=== PATIENT | male | born 1995 | race Caucasian/White ===

== ENCOUNTER 2017-06-06 01:31 | Emergency (ER) | payer SELFPAY ==
[~2017-06-06] VITALS: Ht 172.7 cm; Wt 61.0 kg
[2017-06-06] MEDS ORDERED: TETANUS, DIPHTHERIA, PERTUSSIS VAC/PF 0.5ML (>7YR OLD) IM ONE (03:15)
[2017-06-06] MEDS ORDERED: LIDOCAINE HCL 1% 20ML VIAL (Pyxis) INJ MC ONE (03:15)
[2017-06-06 05:12] VITALS: BP 128/82
== END 2017-06-06 05:18 | disposition home or self-care (01) ==
LOC: ER 03:56
DX: S01.511A Laceration without foreign body of lip, initial encounter (principal); Y04.0XXA Assault by unarmed brawl or fight, initial encounter; Y93.89 Activity, other specified; Y92.810 Car as the place of occurrence of the external cause
CPT/HCPCS: 12011; 90715; 99283; Z7610; 90471

== ENCOUNTER 2017-06-07 16:17 | Emergency (ER) | payer SELFPAY ==
[~2017-06-07] VITALS: Ht 172.7 cm; Wt 60.0 kg
[2017-06-07] MEDS ORDERED: IBUPROFEN 600MG TABLET PO ONE (18:45)
[2017-06-07 18:49] VITALS: BP 109/64
== END 2017-06-07 18:56 | disposition home or self-care (01) ==
LOC: ER 16:17
DX: Z48.00 Encounter for change or removal of nonsurgical wound dressing (principal)
CPT/HCPCS: 99282

== ENCOUNTER 2017-06-11 16:46 | Emergency (ER) | payer SELFPAY ==
[~2017-06-11] VITALS: Ht 175.3 cm; Wt 90.0 kg
[2017-06-11] MEDS ORDERED: BACITRACIN ZINC OINT UDPKT TOP ONE (18:30)
[2017-06-11] MEDS ORDERED: IBUPROFEN 800MG TABLET PO ONE (18:30)
[2017-06-11 20:59] VITALS: BP 108/65
== END 2017-06-11 21:00 | disposition home or self-care (01) ==
LOC: ER 16:46
DX: S01.511D Laceration without foreign body of lip, subsequent encounter (principal); X58.XXXD Exposure to other specified factors, subsequent encounter; Y92.89 Other specified places as the place of occurrence of the external cause; Y99.8 Other external cause status
CPT/HCPCS: 99283

== ENCOUNTER 2017-06-13 19:02 | Emergency (ER) | payer SELFPAY ==
[~2017-06-13] VITALS: Ht 172.7 cm; Wt 56.4 kg
[2017-06-13 19:32] VITALS: BP 96/76
[2017-06-13] MEDS ORDERED: BACITRACIN ZINC OINT UDPKT TOP ONE (20:30)
== END 2017-06-13 21:01 | disposition home or self-care (01) ==
LOC: ER 20:07
DX: Z48.02 Encounter for removal of sutures (principal)
CPT/HCPCS: 99282; Z7610